=== PATIENT | male | born 1980 | race Caucasian/White ===

== ENCOUNTER 2018-11-06 03:09 | Emergency (ER) | payer SELFPAY ==
[2018-11-06] MEDS ORDERED: OXYCODONE-ACETAMINOPHEN 5-325 MG TABLET PO ONE (04:49)
[2018-11-06] MEDS ORDERED: IBUPROFEN 600 MG TABLET PO ONE (04:50)
--- NOTE | 2018-11-06 04:54 | ER Document Report ---
ED Fall - General Chief Complaint: Fall Injury Stated Complaint: FALL/RIGHT WRIST,ELBOW,SHOULDER INJURY Time Seen by Provider: 11/06/18 03:30 Mode of Arrival: Ambulatory Information source: Patient Notes: Patient is an otherwise healthy 38-year-old male who presents the emergency department with chief complaint of right arm pain after he fell. Patient reports he fell approximately 3 feet landing onto his right arm. He reports pain at the wrist, elbow and shoulder. He reports the worst of the pain is at the wrist. He has not taken any medications prior to arrival. TRAVEL OUTSIDE OF THE [place] IN LAST 30 DAYS: No Past Medical History - General Information source: Patient - Social History Smoking Status: Never Smoker Frequency of alcohol use: None Drug Abuse: None Family History: Reviewed & Not Pertinent - Medical History Medical History: Negative Surgical Hx: Negative - Immunizations Immunizations up to date: Yes Review of Systems - Review of Systems Constitutional: No symptoms reported EENT: No symptoms reported Cardiovascular: No symptoms reported Respiratory: No symptoms reported Gastrointestinal: No symptoms reported Genitourinary: No symptoms reported Male Genitourinary: No symptoms reported Musculoskeletal: See HPI Skin: No symptoms reported Hematologic/Lymphatic: No symptoms reported Neurological/Psychological: No symptoms reported Physical Exam - Vital signs Vitals: Temp Pulse Resp BP Pulse Ox 98.1 F 71 14 142/81 H 98 11/06/18 03:13 11/06/18 03:13 11/06/18 03:13 11/06/18 03:13 11/06/18 03:13 - Notes Notes: PHYSICAL EXAMINATION: GENERAL: Well-appearing, well-nourished and in no acute distress. HEAD: Atraumatic, normocephalic. EYES: Pupils equal round and reactive to light, extraocular movements intact, sclera anicteric, conjunctiva are normal. ENT: Nares patent, oropharynx clear without exudates. Moist mucous membranes. NECK: Normal range of motion, supple without lymphadenopathy LUNGS: Breath sounds clear to auscultation bilaterally and equal. No wheezes rales or rhonchi. HEART: Regular rate and rhythm without murmurs ABDOMEN: Soft, nontender, nondistended abdomen. No guarding, no rebound. No masses appreciated. Musculoskeletal: Normal range of motion, no pitting or edema. No cyanosis. Cap refill less than 3 seconds, normal motor and sensation distal to injury. Mild swelling noted at the right wrist. NEUROLOGICAL: Cranial nerves grossly intact. Normal speech, normal gait. Normal sensory, motor exams. PSYCH: Normal mood, normal affect. SKIN: Warm, Dry, normal turgor, no rashes or lesions noted. Course - Re-evaluation Re-evalutation: Fracture noted to the distal radius and ulnar. Patient has normal radial pulse, cap refill less than 3 seconds, normal motor and sensation. Patient will be p laced in a reverse sugar tong splint provided with pain medications and discharged with referral for orthopedics. Discussed with patient the importance of this follow-up as he will likely need surgery. Patient to call Wednesday. - Vital Signs Vital signs: Temp Pulse Resp BP Pulse Ox 98.1 F 71 14 142/81 H 98 11/06/18 03:13 11/06/18 03:13 11/06/18 03:13 11/06/18 03:13 11/06/18 03:13 Procedures - Immobilization Right arm Pre-Proc Neuro Vasc Exam: Normal Immobilizer type: Sling, Other Performed by: PCT Post-Proc Neuro Vasc Exam: Normal Alignment checked and good: Yes Discharge - Discharge Clinical Impression: Radius and ulna distal fracture Qualifiers: Encounter type: initial encounter Fracture type: closed Laterality: right Qualified Code(s): S52.501A - Unspecified fracture of the lower end of right radius, initial encounter for closed fracture Condition: Stable Disposition: HOME, SELF-CARE Additional Instructions: Fractured Radius and Ulna Both bones of the forearm, the radius and the ulna, are fractured. This type of fracture is typically caused by falling onto the outstretched hand. The fractures are not serious, however, and should heal well with adequate protection. Your physician's evaluation shows the bones are now in good position to heal. A cast or splint is used to protect the fractures. For the first few days after the injury, the arm should be elevated and ice packed. Most often, a splint is used first, with a cast later on. Healing takes from four to eight weeks, depending on the age of the patient and the seriousness of the broken bones. Your doctor has explained the treatment plan. It's important that you follow up as instructed to prevent complications. Call the doctor or return at once if severe pain or swelling occur, or if the hand becomes numb, swollen, or discolored. Ice & Elevation Apply ice packs frequently against the painful area. Many different schedules are recommended, such as "20 minutes on, 20 minutes off" or "one hour ice, two hours rest." If you need to work, you may need to go longer between ice treatments. You should plan to have the area ice packed AT LEAST one-fourth of the time. The ice should be applied over the wrap, tape, or splint, or over a layer of cloth -- not directly against the skin. Some ice bags have a built-in cloth and can be put directly on the skin. Your injured part should be elevated as much as possible over the next 48 hours. Try to keep the injury above the level of the heart. Avoid use of the injured area. Elevation and rest will decrease the swelling. Please keep the splint in place until cleared by orthopedics. Take ibuprofen 600 mg every 6 hours for pain and inflammation. Please use the narcotic pain medication for severe pain only. You may take 1 tablet every 4 hours as needed. Ice and elevate the extremity as outlined above. Follow-up with orthopedics, call them Wednesday to schedule an appointment. Prescriptions: Oxycodone HCl/Acetaminophen [Percocet 5-325 mg Tablet] 1 - 2 tab PO Q4H PRN #15 tablet PRN Reason: Referrals: JAMIR ANDUJAR DO [ACTIVE STAFF] - Follow up as needed
--- NOTE | 2018-11-06 05:00 | RADIOLOGY REPORT (SQ) ---
EXAM DESCRIPTION: XR ELBOW 3 VIEWS COMPLETED DATE/TME: 11/06/2018 03:22 CLINICAL HISTORY: 38 years Male, fall from height, pain, difficulty moving COMPARISON: None. Findings: Bones, joints, and soft tissues of the RIGHT XR ELBOW 3 VIEWS appear intact. IMPRESSION: No acute findings.
--- NOTE | 2018-11-06 05:18 | RADIOLOGY REPORT (SQ) ---
Right shoulder three view on 11/06/2018 at 4:41 AM CLINICAL INDICATION: Right shoulder pain after fall COMPARISON: None FINDINGS: The AC joint is well aligned. The glenohumeral joint is well located. There are no fractures. No bony abnormality is noted. IMPRESSION: No acute bony abnormality.
--- NOTE | 2018-11-06 05:19 | RADIOLOGY REPORT (SQ) ---
Right wrist three view on 11/06/2018 at 4:33 AM Clinical indications: Wrist pain after fall COMPARISON: None FINDINGS: There is an acute, impacted, comminuted, intra-articular distal radius metaphysis fracture. There is mild displacement of fracture fragments both anteriorly and posteriorly due to the impaction. There is an acute transverse minimally displaced fracture through the base of the ulnar styloid process. No other fracture is noted. Visualized joints are well aligned. IMPRESSION: Acute distal radius and ulnar styloid process fractures as above.
[2018-11-06] MEDS ORDERED: HYDROCODONE/ACETAMINOPHEN 5-325 MG (6 TAB/ER DISP) PO PRN (06:01)
[2018-11-06 06:41] VITALS: BP 139/78
== END 2018-11-06 06:41 | disposition home or self-care (01) ==
LOC: ER 03:09
DX: S52.501A Unspecified fracture of the lower end of right radius, initial encounter for closed fracture (principal); W19.XXXA Unspecified fall, initial encounter
CPT/HCPCS: 99283